=== PATIENT | male | born 1955 ===

== ENCOUNTER → 2022-04-01 | Outpatient (CLI) | payer OTHER ==
[~2022-04-01] VITALS: Ht 182.9 cm; Wt 86.2 kg
[~2022-04-01] MED LIST: FUROSEMIDE 40 MG/4 ML VIAL IVP ONE
--- NOTE | 2022-04-02 08:20 | RAD ---
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 TECHNIQUE: After the intravenous administration of 5.2 mCi of Technetium 99m MAG3, imaging of the abd omen and pelvis was performed using the gamma camera for 40 minutes. 40 mg of Lasix were administered intravenously 20 minutes into this study. Time activity curves for both kidneys were obtained. FINDINGS: The patient's previous imaging studies were performed at the [facility] are unavailable fo r comparison at this time. Normal perfusion, uptake and excretion of the radionuclide by the left kidney is seen. Uptake and exc retion of the radionuclide by the inferior aspect of the right kidney is seen. A photopenic area is s een involving the superior/mid aspect of the right kidney which gradually accumulates activity during the course of the study. This may be in the region of the patient's known renal mass. The split joanie l function is as follows: left kidney 84.7 percent. Right kidney 15.3 percent. The time of Max in the left kidney is 3.0 minutes. The time of maximum the right kidney is 37.0 minutes. The time of half M ax of the left kidney is 12.9 minutes. The time activity curve for the left kidney is within normal l imits. The time activity curve for the right kidney demonstrates gradual cumulation of radionuclide d uring the coarse of this study. IMPRESSION: 1. Marked discrepancy in the split renal function. The left kidney is 84.7 percent. The right kidney is 15.3 percent. 2. A large photopenic area is seen involving the superior/mid aspect of the right kidney during the i nitial portion of the study which may reflect the patient's known solid renal mass. Electronically signed by: Wilbert Aguilar MD (04/02/2022 8:18 AM) [id number]
== END ==
LOC: NM 10:50
PROVIDERS: ATTEND Urology
DX: D41.01 Neoplasm of uncertain behavior of right kidney (principal)
CPT/HCPCS: 78708; A9562; J1940